=== PATIENT | male | born 1970 | race Caucasian/White ===

== ENCOUNTER 2024-01-10 20:23 | Observation (INO) | payer BC, OTHER ==
[2024-01-10 21:57] LABS: Basophils # (A) 0.1 k/uL (0-0.2); Basophils % (A) 1 %; Eosinophils # (A) 0.2 k/uL (0-0.7); Eosinophils % (A) 2 %; HCT 52.3 % (39.0-53.0); HGB 17.3 gm/dL (13.0-17.5); Lymphocytes # (A) 2.2 k/uL (1.0-4.8); Lymphocytes % (A) 24 %; MCH 28.9 pg (25.0-35.0); MCHC 33.1 g/dL (31.0-37.0); MCV 87.4 fL (80.0-100.0); Mean Platelet Volume 8.4; Monocytes # (A) 0.6 k/uL (0-1.0); Monocytes % (A) 7 %; Neutrophils # (A) 5.9 k/uL (1.3-7.7); Neutrophils % (A) 65 %; Platelet Count 186 k/uL (150-450); RBC 5.99 m/uL (4.30-5.90); RDW 14.3 % (11.5-15.5); WBC 9.2 k/uL (3.8-10.6)
[2024-01-10 22:06] LABS: ALT 62 U/L (4-49); AST 41 U/L (17-59); African American GFR (CKD) >90 (>60 ml/min/1.73 sqM); Albumin 4.2 g/dL (3.5-5.0); Alkaline Phosphatase 50 U/L (38-126); Anion Gap 11 mmol/L; Blood Urea Nitrogen 17 mg/dL (9-20); Calcium 9.3 mg/dL (8.4-10.2); Carbon Dioxide 30 mmol/L (22-30); Chloride 97 mmol/L (98-107); Glucose 113 mg/dL (74-99); Non-African American GFR(CKD) >90 (>60 ml/min/1.73 sqM); Potassium 3.9 mmol/L (3.5-5.1); Sodium 138 mmol/L (137-145); Total Bilirubin 0.8 mg/dL (0.2-1.3); Total Protein 6.8 g/dL (6.3-8.2)
[2024-01-10 22:27] LABS: C Reactive Protein 0.9 mg/dL (<1.0)
--- NOTE | 2024-01-10 23:43 | ED ---
Skin/Abscess/FB HPI - General Chief complaint: Skin/Abscess/Foreign Body Stated complaint: laura. leg pain Time Seen by Provider: 01/10/24 20:46 Source: patient, RN notes reviewed Mode of arrival: ambulatory Limitations: no limitations - History of Present Illness Initial comments: This is a 53-year-old male who presents to the emergency department for redness and swelling to his bilateral lower extremities. States that he has been dealing with this intermittently for the last 3 months. He has been on courses of steroids and antibiotics and states that he seems to get better when being treated, however it comes back immediately after finishing them. He is currently finishing a round of antibiotics that only has a couple of days left. Unsure which one this is. Prior to this, he has not had any bouts of cellulitis. Reports occasional fevers. States that his legs are painful. - Related Data Allergies Allergy/AdvReac Type Severity Reaction Status Date / Time No Known Allergies Allergy Verified 01/10/24 20:30 Review of Systems ROS Statement: Those systems with pertinent positive or pertinent negative responses have been documented in the HPI. ROS Other: All systems not noted in ROS Statement are negative. Past Medical History Past Medical History: No Reported History History of Any Multi-Drug Resistant Organisms: None Reported Additional Past Surgical History / Comment(s): deviated septum Past Psychological History: No Psychological Hx Reported Smoking Status: Current every day smoker Past Alcohol Use History: None Reported Past Drug Use History: Marijuana General Exam Limitations: no limitations General appearance: alert, in no apparent distress Head exam: Present: atraumatic, normocephalic, normal inspection Respiratory exam: Present: normal lung sounds bilaterally. Absent: respiratory distress, wheezes, rales, rhonchi, stridor Cardiovascular Exam: Present: regular rate, normal rhythm, normal heart sounds. Absent: systolic murmur, diastolic murmur, rubs, gallop, clicks Extremities exam: Present: other (Swelling, tenderness, erythema, and warmth to the bilateral lower extremities. 2+ DP and PT pulses.) Neurological exam: Present: alert, oriented X3, CN II-XII intact Psychiatric exam: Present: normal affect, normal mood Course Vital Signs 01/10/24 20:24 Temperature 99.4 F Pulse Rate 97 Respiratory 18 Rate Blood Pressure 146/86 O2 Sat by Pulse 94 L Oximetry Medical Decision Making - Medical Decision Making This is a 53-year-old male who presents to the emergency department for lower extremity redness, swelling, and pain. Was pt. sent in by a medical professional or institution? @ -No Did you speak to anyone other than the patient for history? @ -No Did you review nursing and triage notes? @ -Yes, and I agree, it is accurate with regards to the patient's symptoms. Were old charts reviewed? @ -No Differential Diagnosis? @ -Differential Leg Pain: Leg fracture, leg sprain, DVT, PVD, arterial insufficiency, iliac artery aneurys m, cellulitis, compartment syndrome, tendinopathy, nerve entrapment, piriformis syndrome, osteoarthritis, rhabdomyolysis, myositis, cramping from an electrolyte imbalance, this is not meant to be an all inclusive list. EKG interpreted by me (3pts min.)? @ -Not obtained X-rays interpreted by me (1pt min.)? @ -Not obtained CT interpreted by me (1pt min.)? @ -Not obtained U/S interpreted by me (1pt. min.)? @ -Duplex ultrasound of the bilateral lower extremities obtained. My interpretation identifies no evidence of a DVT. What testing was considered but not performed? (CT, X-rays, U/S, labs)? Why? @ -None What meds were considered but not given? Why? @ -None Did you discuss the management of the patient with other professionals? @ -Yes, Dr. Abreu, who accepts the patient for admission. Did you reconcile home meds? @ -No Was smoking cessation discussed for >3mins.? @ -No Was critical care preformed (if so, how long)? @ -No Were there social determinants of health that impacted care today? How? (Homelessness, low income, unemployed, alcoholism, drug addiction, transportation, low edu. Level, literacy, decrease access to med. care, usp, rehab)? @ -No Was there de-escalation of care discussed even if they declined? (Discuss DNR or withdrawal of care, Hospice)? @ -No What co-morbidities impacted this encounter? (DM, HTN, Smoking, COPD, CAD, Cancer, CVA, Hep., AIDS, mental health diagnosis, sleep apnea, morbid obesity)? @ -None Was patient admitted / discharged? @ -Admitted. Lab work unremarkable. Duplex ultrasound of the bilateral lower extremities reveals no evidence of a DVT. His lower extremities were erythemat ous, warm, swollen, and tender. This is suggestive of a lower extremity cellulitis, especially given that it seems to respond to antibiotics. However, we discussed that other etiologies are also a possibility. Given the progressive nature of his symptoms as well as them being fairly bothersome, thais smith admitted to medicine for possible bilateral lower extremity cellulitis with failure of outpatient management. He was started on vancomycin and cefepime. Consult placed for infectious disease for further evaluation. Case discussed with ED attending Dr. Hollis. Undiagnosed new problem with uncertain prognosis? @ -None Drug Therapy requiring intensive monitoring for toxicity (Heparin, Nitro, Insulin, Cardizem)? @ -None Were any procedures done? @ -None Diagnosis/symptom? @ -Bilateral lower extremity cellulitis Acute, or Chronic, or Acute on Chronic? @ -Chronic Uncomplicated (without systemic symptoms) or Complicated (systemic symptoms)? @ -Uncomplicated Side effects of treatment? @ -None Exacerbation, Progression, or Severe Exacerbation] @ -Progression Poses a threat to life or bodily function? @ -Yes, can lead to severe infection, which can become life-threatening. - Lab Data Result diagrams: 01/10/24 21:45 01/10/24 21:45 Lab Results 01/10/24 01/10/24 01/10/24 Range/Units 21:45 21:45 21:45 WBC 9.2 (3.8-10.6) k/uL RBC 5.99 H (4.30-5.90) m/uL Hgb 17.3 (13.0-17.5) gm/dL Hct 52.3 (39.0-53.0) % MCV 87.4 (80.0-100.0) fL MCH 28.9 (25.0-35.0) pg MCHC 33.1 (31.0-37.0) g/dL RDW 14.3 (11.5-15.5) % Plt Count 186 (150-450) k/uL MPV 8.4 Neutrophils % 65 % Lymphocytes % 24 % Monocytes % 7 % Eosinophils % 2 % Basophils % 1 % Neutrophils # 5.9 (1.3-7.7) k/uL Lymphocytes # 2.2 (1.0-4.8) k/uL Monocytes # 0.6 (0-1.0) k/uL Eosinophils # 0.2 (0-0.7) k/uL Basophils # 0.1 (0-0.2) k/uL ESR 18 (0-20) mm/Hr Sodium 138 (137-145) mmol/L Potassium 3.9 (3.5-5.1) mmol/L Chloride 97 L (98-107) mmol/L Carbon Dioxide 30 (22-30) mmol/L Anion Gap 11 mmol/L BUN 17 (9-20) mg/dL Creatinine 0.91 (0.66-1.25) mg/dL Est GFR (CKD-EPI)AfAm >90 (>60 ml/min/1.73 sqM) Est GFR (CKD-EPI)NonAf >90 (>60 ml/min/1.73 sqM) Glucose 113 H (74-99) mg/dL Plasma Lactic Acid Adilson 1.1 (0.7-2.0) mmol/L Calcium 9.3 (8.4-10.2) mg/dL Total Bilirubin 0.8 (0.2-1.3) mg/dL AST 41 (17-59) U/L ALT 62 H (4-49) U/L Alkaline Phosphatase 50 (38-126) U/L C-Reactive Protein 0.9 (<1.0) mg/dL NT-Pro-B Natriuret Pep pg/mL Total Protein 6.8 (6.3-8.2) g/dL Albumin 4.2 (3.5-5.0) g/dL 01/10/24 Range/Units 21:45 WBC (3.8-10.6) k/uL RBC (4.30-5.90) m/uL Hgb (13.0-17.5) gm/dL Hct (39.0-53.0) % MCV (80.0-100.0) fL MCH (25.0-35.0) pg MCHC (31.0-37.0) g/dL RDW (11.5-15.5) % Plt Count (150-450) k/uL MPV Neutrophils % % Lymphocytes % % Monocytes % % Eosinophils % % Basophils % % Neutrophils # (1.3-7.7) k/uL Lymphocytes # (1.0-4.8) k/uL Monocytes # (0-1.0) k/uL Eosinophils # (0-0.7) k/uL Basophils # (0-0.2) k/uL ESR (0-20) mm/Hr Sodium (137-145) mmol/L Potassium (3.5-5.1) mmol/L Chloride (98-107) mmol/L Carbon Dioxide (22-30) mmol/L Anion Gap mmol/L BUN (9-20) mg/dL Creatinine (0.66-1.25) mg/dL Est GFR (CKD-EPI)AfAm (>60 ml/min/1.73 sqM) Est GFR (CKD-EPI)NonAf (>60 ml/min/1.73 sqM) Glucose (74-99) mg/dL Plasma Lactic Acid Adilson (0.7-2.0) mmol/L Calcium (8.4-10.2) mg/dL Total Bilirubin (0.2-1.3) mg/dL AST (17-59) U/L ALT (4-49) U/L Alkaline Phosphatase (38-126) U/L C-Reactive Protein (<1.0) mg/dL NT-Pro-B Natriuret Pep <20 pg/mL Total Protein (6.3-8.2) g/dL Albumin (3.5-5.0) g/dL - Radiology Data Radiology results: report reviewed, image reviewed Disposition Clinical Impression: Bilateral lower leg cellulitis, Failure of outpatient treatment Disposition: ADMITTED IP TO THIS HOSP
--- NOTE | 2024-01-11 00:06 | US ---
EXAMINATION TYPE: US venous doppler duplex LE DATE OF EXAM: 01/10/2024 10:44 PM COMPARISON: US 2014 CLINICAL INDICATION: Male, 53 years old with history of Leg swelling and redness; Patient states leg swelling and redness. No hx DVT. No blood thinners. SIDE PERFORMED: Bilateral TECHNIQUE: The lower extremity deep venous system is examined utilizing real time linear array sonog woody with graded compression, doppler sonography and color-flow sonography. VESSELS IMAGED: Common Femoral Vein Deep Femoral Vein Greater Saphenous Vein * Femoral Vein Popliteal Vein Small Saphenous Vein * Proximal Calf Veins (* superficial vessels) Slightly limited due to patient body habitus Right Leg: Appears negative for DVT as best seen Left Leg: Appears negative for DVT as best seen Grayscale, color doppler, spectral doppler imaging performed of the deep veins of the bilateral lower extremities. There is normal flow, compressibility, vascular waveforms. IMPRESSION: No ultrasound evidence for acute DVT in either lower extremity.
[2024-01-11] MEDS ORDERED: VANCOMYCIN IV PER PHARMACY 1 EACH MISC MISCELLANE PRN (00:48)
[2024-01-11] MEDS ORDERED: NALOXONE 0.4 MG/ML 1 ML VIAL IV PRN (01:29)
[2024-01-11] MEDS ORDERED: ONDANSETRON 4 MG/2 ML VIAL IVP PRN (01:29)
[2024-01-11] MEDS ORDERED: MORPHINE SULFATE 4 MG/ML SYRINGE IV PRN (01:29)
[2024-01-11] MEDS ORDERED: IBUPROFEN 400 MG TAB PO PRN (01:29)
[2024-01-11] MEDS ORDERED: HYDROcodone/APAP 5-325MG 1 EACH TAB PO PRN (01:29)
[2024-01-11 01:33] LABS: Erythrocyte Sedimentation Rate 18 mm/Hr (0-20)
[2024-01-11] MEDS: CEFEPIME 2 GM in SODIUM CHLORIDE 0.9% 100 ML IVPB SCH (01:42)
[2024-01-11] MEDS: VANCOMYCIN 2,000 MG in SODIUM CHLORIDE 0.9% 500 ML 500 ML IVPB ONE (02:24)
[2024-01-11] MEDS ORDERED: VANCOMYCIN 2,000 MG in SODIUM CHLORIDE 0.9% 500 ML 500 ML IVPB SCH (14:00)
[2024-01-11] MEDS: ceFAZolin 3 GM in SODIUM CHLORIDE 0.9% 100 ML IVPB SCH (14:39)
--- NOTE | 2024-01-11 22:17 | P.CONS ---
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 5 PM and has developed significant swelling to lower extremity with areas of redness over the patient has been diagnosed with a cellulitis at the urgent care with the patient has visit about 3 times before coming to the ER and has been treated with 3 different courses of antibiotic however the patient not sure about the name of those antibiotics patient not complaining of increasing swelling as well as redness to bilateral extremity that apparently has been getting worse over the last few days patient complaining of diffuse swelling to bilateral extremity with associated redness he did have some dull aching pain describing it to be moderate intensity without any radiation currently do not have any open wound or any drainage did have some chills on presentation to the hospital he did have low-grade fever of 99.4 degrees following right patient was not tachycardic hypotensive or hypoxic he did have white count of 9.2 creatinine was 0.91 electrolytes are normal patient was started on cefepime and vancomycin admit to the hospital infectious disease was consulted for further management of antibiotic therapy Review of Systems Positive point and negatives has been mentioned in the HPI, complete review of systems was performed and all other systems are negative Past Medical History Past Medical History: No Reported History History of Any Multi-Drug Resistant Organisms: None Reported Additional Past Surgical History / Comment(s): deviated septum Past Psychological History: No Psychological Hx Reported Smoking Status: Current every day smoker Past Alcohol Use History: None Reported Past Drug Use History: Marijuana Medications and Allergies Home Medications Medication Instructions Recorded Confirmed Type Doxycycline Hyclate 100 mg PO BID 01/11/24 01/11/24 History Allergies Allergy/AdvReac Type Severity Reaction Status Date / Time No Known Allergies Allergy Verified 01/11/24 07:43 Physical Exam Vitals: Vital Signs Temp Pulse Resp BP Pulse Ox 01/11/24 08:00 98.4 F 88 18 126/83 98 01/11/24 04:20 98.3 F 76 20 125/87 96 01/11/24 03:05 94 L 01/11/24 00:30 99.0 F 72 18 130/89 96 01/10/24 20:24 99.4 F 97 18 146/86 94 L Intake and Output 01/10/24 01/11/24 01/11/24 22:59 06:59 14:59 Other: Weight 127.006 kg GENERAL DESCRIPTION: Middle-aged male lying in bed, no distress. No tachypnea or accessory muscle of respiration use. HEENT: Shows Pallor , no scleral icterus. Oral mucous membrane is dry. No pharyngeal erythema or thrush NECK: Trachea central, no thyromegaly. LUNGS: Unlabored breathing. Clear to auscultation anteriorly. No wheeze or crackle. HEART: S1, S2, regular rate and rhythm. No loud murmur ABDOMEN: Soft, no tenderness , guarding or rigidity, no organomegaly EXTREMITIES: Diffuse under bilateral lower extremity with some redness which is warm to touch SKIN: No rash, no masses palpable. NEUROLOGICAL: The patient is awake, alert, oriented x3, mood and affect normal. Results CBC & Chem 7: 01/10/24 21:45 01/10/24 21:45 Labs: Abnormal Lab Results - Last 24 Hours (Table) 01/10/24 01/10/24 Range/Units 21:45 21:45 RBC 5.99 H (4.30-5.90) m/uL Chloride 97 L (98-107) mmol/L Glucose 113 H (74-99) mg/dL ALT 62 H (4-49) U/L Assessment and Plan (1) Bilateral lower leg cellulitis Current Visit: Yes Status: Acute Code(s): L03.116 - CELLULITIS OF LEFT LOWER LIMB; L03.115 - CELLULITIS OF RIGHT LOWER LIMB SNOMED Code(s): 096976526 (2) Failure of outpatient treatment Current Visit: Yes Status: Acute Code(s): Z78.9 - OTHER SPECIFIED HEALTH STATUS SNOMED Code(s): 039821148 Plan: 1patient with diffuse swelling to bilateral lower extremity with associated redness in this patient's likely with venous stasis but no evidence of any DVT continue to risk of recurrent cellulitis failing outpatient oral antibiotic therapy likely streptococcal disease 2discontinue vancomycin and cefepime. 3we will apply Jordan wrap from just above the toe to below the knee change daily. 4we will start the patient cefazolin 3 g every 8 hours We will follow on clinical condition and cultures to further adjust medication if needed Thank you for this consultation we will follow the patient along with you Dictation was produced using [employer] dictation software. please excuse any grammatical, word or spelling errors. Time with Patient: Greater than 30
[2024-01-12 12:55] LABS: African American GFR (CKD) >90 (>60 ml/min/1.73 sqM); Anion Gap 7 mmol/L; Blood Urea Nitrogen 13 mg/dL (9-20); Calcium 9.1 mg/dL (8.4-10.2); Carbon Dioxide 31 mmol/L (22-30); Chloride 101 mmol/L (98-107); Glucose 67 mg/dL (74-99); Non-African American GFR(CKD) >90 (>60 ml/min/1.73 sqM); Potassium 3.9 mmol/L (3.5-5.1); Sodium 139 mmol/L (137-145)
[2024-01-12 13:11] LABS: Basophils % (A) 0 %; Eosinophils # (A) 0.1 k/uL (0-0.7); Eosinophils % (A) 1 %; HGB 18.5 gm/dL (13.0-17.5); Lymphocytes % (A) 24 %; MCH 29.2 pg (25.0-35.0); MCHC 32.8 g/dL (31.0-37.0); Mean Platelet Volume 9.1; Monocytes # (A) 0.7 k/uL (0-1.0); Monocytes % (A) 9 %; Neutrophils # (A) 5.3 k/uL (1.3-7.7); Neutrophils % (A) 64 %; Platelet Count 201 k/uL (150-450); RBC 6.36 m/uL (4.30-5.90); RDW 14.8 % (11.5-15.5); WBC 8.4 k/uL (3.8-10.6)
[2024-01-12 13:13] LABS: HCT 56.6 % (39.0-53.0)
[2024-01-12 16:39] LABS: Glucose,Whole Blood 84 mg/dL (70-110)
--- NOTE | 2024-01-12 16:54 | P.HPIM ---
History of Present Illness H&P Date: 01/11/24 Chief Complaint: Pain and swelling both lower extremities 53-year-old male who presents to the emergency department for redness and swelling to his bilateral lower extremities. States that he has been dealing with this intermittently for the last 3 months. He has been on courses of steroids and antibiotics and states that he seems to get better when being treated, however it comes back immediately after finishing them. He is currently finishing a round of antibiotics that only has a couple of days left. Unsure which one this is. Prior to this, he has not had any bouts of cellulitis. Reports occasional fevers. States that his legs are painful. 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 5 PM and has developed significant swelling to lower extremity with areas of redness over the patient has been diagnosed with a cellulitis at the urgent care with t he patient has visit about 3 times before coming to the ER and has been treated with 3 different courses of antibiotic however the patient not sure about the name of those antibiotics patient not complaining of increasing swelling as well as redness to bilateral extremity that apparently has been getting worse over the last few days patient complaining of diffuse swelling to bilateral extremity with associated redness he did have some dull aching pain describing it to be moderate intensity without any radiation currently do not have any open wound or any drainage Blood work completed in ED reveals a WBC of 9.2, hemoglobin of 17.3 and platelet count of 186, sodium 138, potassium 3.9, BUNs/creatinine of 17/0.91 and blood glucose of 113 Review of Systems REVIEW OF SYSTEMS: CONSTITUTIONAL: No fever, no malaise, no fatigue. HEENT: No recent visual problems or hearing problems. Denied any sore throat. CARDIOVASCULAR: No chest pain, orthopnea, PND, no palpitations, no syncope. PULMONARY: No shortness of breath, no cough, no hemoptysis. GASTROINTESTINAL: No diarrhea, no nausea, no vomiting, no abdominal pain. NEUROLOGICAL: No headaches, no weakness, no numbness. HEMATOLOGICAL: Denies any bleeding or petechiae. GENITOURINARY: Denies any burning micturition, frequency, or urgency. MUSCULOSKELETAL/RHEUMATOLOGICAL: Denies any joint pain, swelling, or any muscle pain. ENDOCRINE: Denies any polyuria or polydipsia. The rest of the 14-point review of systems is negative. Past Medical History Past Medical History: No Reported History History of Any Multi-Drug Resistant Organisms: None Reported Additional Past Surgical History / Comment(s): deviated septum Past Psychological History: No Psychological Hx Reported Smoking Status: Current every day smoker Past Alcohol Use History: None Reported Past Drug Use History: Marijuana Medications and Allergies Home Medications Medication Instructions Recorded Confirmed Type Doxycycline Hyclate 100 mg PO BID 01/11/24 01/11/24 History Allergies Allergy/AdvReac Type Severity Reaction Status Date / Time No Known Allergies Allergy Verified 01/11/24 07:43 Physical Exam Vitals: Vital Signs Temp Pulse Resp BP Pulse Ox 01/11/24 08:00 98.4 F 88 18 126/83 98 01/11/24 04:20 98.3 F 76 20 125/87 96 01/11/24 03:05 94 L 01/11/24 00:30 99.0 F 72 18 130/89 96 01/10/24 20:24 99.4 F 97 18 146/86 94 L Intake and Output 01/10/24 01/11/24 01/11/24 22:59 06:59 14:59 Other: Weight 127.006 kg Limitations: no limitations General appearance: alert, in no apparent distress Head exam: Present: atraumatic, normocephalic, normal inspection Respiratory exam: Present: normal lung sounds bilaterally. Absent: respiratory distress, wheezes, rales, rhonchi, stridor Cardiovascular Exam: Present: regular rate, normal rhythm, normal heart sounds. Absent: systolic murmur, diastolic murmur, rubs, gallop, clicks Extremities exam: Present: other (Swelling, tenderness, erythema, and warmth to the bilateral lower extremities. 2+ DP and PT pulses.) Neurological exam: Present: alert, oriented X3, CN II-XII intact Psychiatric exam: Present: normal affect, normal mood Results CBC & Chem 7: 01/12/24 12:06 01/12/24 12:06 Labs: Abnormal Lab Results - Last 24 Hours (Table) 01/10/24 01/10/24 Range/Units 21:45 21:45 RBC 5.99 H (4.30-5.90) m/uL Chloride 97 L (98-107) mmol/L Glucose 113 H (74-99) mg/dL ALT 62 H (4-49) U/L Assessment and Plan Assessment: 1. Cellulitis bilateral lower extremities; failed outpatient treatment -Patient has been evaluated by ID and is recommended to be placed on cefazolin 3 g IV every 8 hours; Jordan wrap to both lower extremities between toes and knees -Blood cultures obtained in ED; monitor CBC, CRP and procalcitonin 2. Mild transaminitis; no history of alcohol use; will monitor closely 3. Obesity; counseling done on need for weight reduction 4. Uncontrolled pain; morphine sulfate 4 mg IV every 4 hours as needed along wi th [place] 5 mg every 4 hours as needed VTE prophylaxis; early ambulation CODE STATUS; full code
--- NOTE | 2024-01-12 19:19 | P.PN ---
Subjective Progress Note Date: 01/12/24 Principal diagnosis: Reason for follow-up is bilateral lower extremity cellulitis Patient is a 53-year-old male with no significant past medical history apparently patient has been dealing with bilateral lower extremity swelling and redness for the last 3 months, presented to hospital with worsening swelling redness and pain to bilateral extremity has been diagnosed with cellulitis Dopplers were negative for DVT. On today's evaluation that is 01/12/2024,the patient denies any fever or any chills, patient is breathing comfortably on room air, the patient denies chest pain shortness of breath and no significant cough, patient denies abdominal pain, no nausea vomiting or diarrhea. Patient bilateral lower extremity swelling and redness slightly decreased patient was not able to tolerate Jordan wrap as reported by the nursing staff. Patient white count is 8.4, creatinine 0.88 blood cultures are pending Objective - Vital Signs Vital signs: Vital Signs Temp 98.4 F 01/12/24 02:14 Pulse 90 01/12/24 02:14 Resp 18 01/12/24 02:14 BP 139/89 01/12/24 02:14 Pulse Ox 95 01/12/24 02:14 FiO2 Intake & Output 01/11/24 01/12/24 01/12/24 18:59 06:59 18:59 Weight 127.006 kg Other: Voiding Method Toilet # Voids 2 - Exam GENERAL DESCRIPTION: Middle-age male lying in bed in no distress RESPIRATORY SYSTEM: Unlabored breathing , decreased breath sounds at bases HEART: S1 S2 regular rate and rhythm , ABDOMEN: Soft , no tenderness EXTREMITIES: Bilateral lower extremity swelling redness slightly decreased - Labs CBC & Chem 7: 01/12/24 12:06 01/12/24 12:06 Assessment and Plan (1) Bilateral lower leg cellulitis Current Visit: Yes Status: Acute Code(s): L03.116 - CELLULITIS OF LEFT LOWER LIMB; L03.115 - CELLULITIS OF RIGHT LOWER LIMB SNOMED Code(s): 608621749 (2) Failure of outpatient treatment Current Visit: Yes Status: Acute Code(s): Z78.9 - OTHER SPECIFIED HEALTH STATUS SNOMED Code(s): 668551177 Plan: 1patient with diffuse swelling to bilateral lower extremity with associated redness in this patient's likely with venous stasis but no evidence of any DVT continue to risk of recurrent cellulitis failing outpatient oral antibiotic therapy likely streptococcal disease 2patient was unable to tolerate Jordan wrap nursing staff advised to apply compression stockings and continue with the cefazolin will reevaluate tomorrow Dictation was produced using [employer] dictation software. please excuse any grammatical, word or spelling errors. Time with Patient: Less than 30
[2024-01-12 20:26] LABS: Glucose,Whole Blood 110 mg/dL (70-110)
[2024-01-13 05:55] LABS: Glucose,Whole Blood 126 mg/dL (70-110)
[2024-01-13] MEDS: ACETAMINOPHEN TAB 325 MG TAB PO PRN (07:39)
[2024-01-13 10:42] LABS: Basophils # (A) 0.05 X 10*3/uL (0.00-0.10); Basophils % (A) 0.5 %; Eosinophils % (A) 2.1 %; HCT 53.4 % (39.6-50.0); HGB 17.4 g/dL (13.0-17.0); Lymphocytes # (A) 2.33 X 10*3/uL (0.90-5.00); Lymphocytes % (A) 24.3 %; MCH 28.1 pg (27.0-32.0); MCHC 32.6 g/dL (32.0-37.0); MCV 86.1 FL (80.0-97.0); Mean Platelet Volume 10.3 FL (9.5-12.2); Monocytes # (A) 0.93 X 10*3/uL (0.20-1.00); Monocytes % (A) 9.7 %; NRBC Per 100 WBC 0 X 10*3/uL (0.00-0.01); Neutrophils # (A) 5.84 X 10*3/uL (1.80-7.70); Neutrophils % (A) 60.8 %; Platelet Count 189 X 10*3/uL (140-440); RDW 14.4 % (11.5-14.5)
[2024-01-13 11:17] LABS: BUN/Creat Ratio 14.89 Ratio (12.00-20.00); Blood Urea Nitrogen 13.4 mg/dL (9.0-27.0); Calcium 8.6 mg/dL (8.7-10.3); Carbon Dioxide 24.4 mmol/L (21.6-31.8); Chloride 105 mmol/L (96-109); Glucose 111 mg/dL (70-110); Potassium 4.2 mmol/L (3.5-5.5); Sodium 138 mmol/L (135-145)
[2024-01-13 11:47] LABS: Glucose,Whole Blood 92 mg/dL (70-110)
[2024-01-13 17:10] LABS: Glucose,Whole Blood 107 mg/dL (70-110)
--- NOTE | 2024-01-13 17:44 | P.PN ---
Subjective Progress Note Date: 01/13/24 53-year-old male who presents to the emergency department for redness and swelling to his bilateral lower extremities. States that he has been dealing with this intermittently for the last 3 months. He has been on courses of steroids and antibiotics and states that he seems to get better when being najma nazario, however it comes back immediately after finishing them. He is currently finishing a round of antibiotics that only has a couple of days left. Unsure which one this is. Prior to this, he has not had any bouts of cellulitis. Reports occasional fevers. States that his legs are painful. 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 5 PM and has developed significant swelling to lower extremity with areas of redness over the patient has been diagnosed with a cellulitis at the urgent care with the patient has visit about 3 times before coming to the ER and has been treated with 3 different courses of antibiotic however the patient not sure about the name of those antibiotics patient not complaining of increasing swelling as well as redness to bilateral extremity that apparently has been getting worse over the last few days patient complaining of diffuse swelling to bilateral extremity with associated redness he did have some dull aching pain describing it to be moderate intensity without any radiation currently do not have any open wound or any drainage Blood work completed in ED reveals a WBC of 9.2, hemoglobin of 17.3 and platelet count of 186, sodium 138, potassium 3.9, BUNs/creatinine of 17/0.91 and blood glucose of 113 Objective - Vital Signs Vital signs: Vital Signs Temp 97.9 F 01/12/24 07:40 Pulse 95 01/12/24 07:40 Resp 20 01/12/24 07:40 BP 129/87 01/12/24 07:40 Pulse Ox 93 L 01/12/24 07:40 FiO2 Intake & Output 01/11/24 01/12/24 01/12/24 18:59 06:59 18:59 Weight 127.006 kg Other: Voiding Method Toilet # Voids 2 - Exam General appearance: alert, in no apparent distress Head exam: Present: atraumatic, normocephalic, normal inspection Respiratory exam: Present: normal lung sounds bilaterally. Absent: respiratory distress, wheezes, rales, rhonchi, stridor Cardiovascular Exam: Present: regular rate, normal rhythm, normal heart sounds. Absent: systolic murmur, diastolic murmur, rubs, gallop, clicks Extremities exam: Present: other (Swelling, tenderness, erythema, and warmth to the bilateral lower extremities. 2+ DP and PT pulses.) Neurological exam: Present: alert, oriented X3, CN II-XII intact Psychiatric exam: Present: normal affect, normal mood - Labs CBC & Chem 7: 01/13/24 06:28 01/13/24 06:28 Assessment and Plan Assessment: 1. Cellulitis bilateral lower extremities; failed outpatient treatment -Patient has been evaluated by ID and is recommended to be placed on cefazolin 3 g IV every 8 hours; Jordan wrap to both lower extremities between toes and knees -Blood cultures obtained in ED; monitor CBC, CRP and procalcitonin 2. Mild transaminitis; no history of alcohol use; will monitor closely 3. Obesity; counseling done on need for weight reduction 4. Uncontrolled pain; morphine sulfate 4 mg IV every 4 hours as needed along with [place] 5 mg every 4 hours as needed VTE prophylaxis; early ambulation CODE STATUS; full code
--- NOTE | 2024-01-13 17:46 | P.PN ---
Subjective Progress Note Date: 01/13/24 53-year-old male who presents to the emergency department for redness and swelling to his bilateral lower extremities. States that he has been dealing with this intermittently for the last 3 months. He has been on courses of steroids and antibiotics and states that he seems to get better when being najma nazario, however it comes back immediately after finishing them. He is currently finishing a round of antibiotics that only has a couple of days left. Unsure which one this is. Prior to this, he has not had any bouts of cellulitis. Reports occasional fevers. States that his legs are painful. 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 5 PM and has developed significant swelling to lower extremity with areas of redness over the patient has been diagnosed with a cellulitis at the urgent care with the patient has visit about 3 times before coming to the ER and has been treated with 3 different courses of antibiotic however the patient not sure about the name of those antibiotics patient not complaining of increasing swelling as well as redness to bilateral extremity that apparently has been getting worse over the last few days patient complaining of diffuse swelling to bilateral extremity with associated redness he did have some dull aching pain describing it to be moderate intensity without any radiation currently do not have any open wound or any drainage Blood work completed in ED reveals a WBC of 9.2, hemoglobin of 17.3 and platelet count of 186, sodium 138, potassium 3.9, BUNs/creatinine of 17/0.91 and blood glucose of 113 01/13/2024 Patient is seen and evaluated in room at bedside; reports some improvement in pain and redness in lower extremities; remains swollen Vital signs are reviewed and remained stable Lab review shows WBC 9.6, hemoglobin 17.4 and platelet count of 189, sodium 138, potassium 4.2, BUNs/creatinine of 13.4/0.9 -ID on board and recommending to continue with IV cefazolin given suspicion for streptococcal disease; Jordan wrap to both lower extremities was recommended; patient is unable to tolerate Objective - Vital Signs Vital signs: Vital Signs Temp 98.2 F 01/13/24 07:28 Pulse 80 01/13/24 07:28 Resp 18 01/13/24 07:28 BP 116/77 01/13/24 07:28 Pulse Ox 95 01/13/24 07:28 FiO2 Intake & Output 01/12/24 01/13/24 01/13/24 18:59 06:59 18:59 Intake Total 120 Balance 120 Intake: Oral 120 Other: Voiding Method Toilet # Voids 3 3 - Exam General appearance: alert, in no apparent distress Head exam: Present: atraumatic, normocephalic, normal inspection Respiratory exam: Present: normal lung sounds bilaterally. Absent: respiratory distress, wheezes, rales, rhonchi, stridor Cardiovascular Exam: Present: regular rate, normal rhythm, normal heart sounds. Absent: systolic murmur, diastolic murmur, rubs, gallop, clicks Extremities exam: Present: other (Swelling, tenderness, erythema, and warmth to the bilateral lower extremities. 2+ DP and PT pulses.) Neurological exam: Present: alert, oriented X3, CN II-XII intact Psychiatric exam: Present: normal affect, normal mood - Labs CBC & Chem 7: 01/13/24 06:28 01/13/24 06:28 Labs: Abnormal Lab Results - Last 24 Hours (Table) 01/12/24 01/12/24 01/13/24 Range/Units 12:06 12:06 05:51 RBC 6.36 H (4.30-5.90) m/uL Hgb 18.5 H (13.0-17.5) gm/dL Hct 56.6 H (39.0-53.0) % Immature Gran # (0.00-0.04) X 10*3/uL Carbon Dioxide 31 H (22-30) mmol/L Glucose 67 L (74-99) mg/dL POC Glucose (mg/dL) 126 H (70-110) mg/dL Calcium (8.7-10.3) mg/dL 01/13/24 01/13/24 Range/Units 06:28 06:28 RBC 6.20 H (4.30-5.90) m/uL Hgb 17.4 H (13.0-17.5) gm/dL Hct 53.4 H (39.0-53.0) % Immature Gran # 0.25 H (0.00-0.04) X 10*3/uL Carbon Dioxide (22-30) mmol/L Glucose 111 H (74-99) mg/dL POC Glucose (mg/dL) (70-110) mg/dL Calcium 8.6 L (8.7-10.3) mg/dL Microbiology - Last 24 Hours (Table) 01/11/24 01:30 Blood Culture - Preliminary Blood Assessment and Plan Assessment: 1. Cellulitis bilateral lower extremities; failed outpatient treatment -Patient has been evaluated by ID and is recommended to be placed on cefazolin 3 g IV every 8 hours; Jordan wrap to both lower extremities between toes and knees -Blood cultures obtained in ED; monitor CBC, CRP and procalcitonin 2. Mild transaminitis; no history of alcohol use; will monitor closely 3. Obesity; counseling done on need for weight reduction 4. Uncontrolled pain; morphine sulfate 4 mg IV every 4 hours as needed along with [place] 5 mg every 4 hours as needed VTE prophylaxis; early ambulation CODE STATUS; full code
[2024-01-13 21:25] LABS: Glucose,Whole Blood 117 mg/dL (70-110)
[2024-01-14 05:43] LABS: Glucose,Whole Blood 101 mg/dL (70-110)
[2024-01-14 11:18] LABS: Glucose,Whole Blood 137 mg/dL (70-110)
[2024-01-14 11:45] LABS: Basophils # (A) 0.06 X 10*3/uL (0.00-0.10); Basophils % (A) 0.7 %; Eosinophils # (A) 0.18 X 10*3/uL (0.04-0.35); Eosinophils % (A) 2.1 %; HCT 54.3 % (39.6-50.0); HGB 17.1 g/dL (13.0-17.0); Lymphocytes # (A) 2.06 X 10*3/uL (0.90-5.00); Lymphocytes % (A) 23.5 %; MCH 27.9 pg (27.0-32.0); MCHC 31.5 g/dL (32.0-37.0); MCV 88.6 FL (80.0-97.0); Mean Platelet Volume 11.3 FL (9.5-12.2); Monocytes # (A) 0.91 X 10*3/uL (0.20-1.00); Monocytes % (A) 10.4 %; NRBC Per 100 WBC 0 X 10*3/uL (0.00-0.01); Neutrophils # (A) 5.35 X 10*3/uL (1.80-7.70); Neutrophils % (A) 60.9 %; Platelet Count 179 X 10*3/uL (140-440); RBC 6.13 X 10*6/uL (4.40-5.60); RDW 14.4 % (11.5-14.5); WBC 8.77 X 10*3/uL (4.50-10.00)
[2024-01-14 12:07] LABS: Blood Urea Nitrogen 12.6 mg/dL (9.0-27.0); Calcium 8.5 mg/dL (8.7-10.3); Carbon Dioxide 24.2 mmol/L (21.6-31.8); Chloride 103 mmol/L (96-109); Glucose 111 mg/dL (70-110); Potassium 4.1 mmol/L (3.5-5.5); Sodium 138 mmol/L (135-145)
--- NOTE | 2024-01-14 12:46 | P.PN ---
Subjective 53-year-old male who presents to the emergency department for redness and swelling to his bilateral lower extremities. States that he has been dealing with this intermittently for the last 3 months. He has been on courses of steroids and antibiotics and states that he seems to get better when being treated, however it comes back immediately after finishing them. He is currently finishing a round of antibiotics that only has a couple of days left. Unsure which one this is. Prior to this, he has not had any bouts of cellulitis. Reports occasional fevers. States that his legs are painful. 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 5 PM and has developed significant swelling to lower extremity with areas of redness over the patient has been diagnosed with a cellulitis at the urgent care with the patient has visit about 3 times before coming to the ER and has been treated with 3 different courses of antibiotic however the patient not sure about the name of those antibiotics patient not complaining of increasing swelling as well as redness to bilateral extremity that apparently has been getting worse over the last few days patient complaining of diffuse swelling to bilateral extremity with associated redness he did have some dull aching pain describing it to be moderate intensity without any radiation currently do not have any open wound or any drainage Blood work completed in ED reveals a WBC of 9.2, hemoglobin of 17.3 and platelet count of 186, sodium 138, potassium 3.9, BUNs/creatinine of 17/0.91 and blood gl ucose of 113 01/13/2024 Patient is seen and evaluated in room at bedside; reports some improvement in pain and redness in lower extremities; remains swollen Vital signs are reviewed and remained stable Lab review shows WBC 9.6, hemoglobin 17.4 and platelet count of 189, sodium 138, potassium 4.2, BUNs/creatinine of 13.4/0.9 -ID on board and recommending to continue with IV cefazolin given suspicion for streptococcal disease; Jordan wrap to both lower extremities was recommended; patient is unable to tolerate 01/13 Patient legs remain swollen red and tender on both sides, compression stocking in place No chest pain dyspnea, no other new complaint Hemodynamically stable, CBC and BMP stable, hemoglobin 17.4 and 17.1 Patient remains on cefazolin Ultrasound of the leg is negative for DVT Patient still in me he has no PCP and he has no insurance but he is willing to follow-up outpatient when he is done. Objective - Vital Signs Vital signs: Vital Signs Temp 98.0 F 01/14/24 07:00 Pulse 100 01/14/24 07:00 Resp 17 01/14/24 07:00 BP 133/76 01/14/24 07:00 Pulse Ox 98 01/14/24 07:00 FiO2 Intake & Output 01/13/24 01/14/24 01/14/24 18:59 06:59 18:59 Intake Total 620 120 Balance 620 120 Intake: Oral 620 120 Other: # Voids 6 2 # Bowel Movements 2 - Exam GENERAL: The patient is alert and oriented x3, not in any acute distress. Well developed, well nourished. HEENT: Pupils are round and equally reacting to light. EOMI. No scleral icterus. No conjunctival pallor. Normocephalic, atraumatic. No pharyngeal erythema. No thyromegaly. CARDIOVASCULAR: S1 and S2 present. No murmurs, rubs, or gallops. PULMONARY: Chest is clear to auscultation, no wheezing , no crackles. ABDOMEN: Soft, nontender, nondistended, normoactive bowel sounds. No palpable organomegaly. MUSCULOSKELETAL: No joint swelling or deformity. -EXTREMITIES: No cyanosis, clubbing, or pedal edema. Bilateral lower extremity redness tenderness and erythema NEUROLOGICAL: Gross neurological examination did not reveal any focal deficits. SKIN: No rashes. no petechiae. - Labs CBC & Chem 7: 01/14/24 05:02 01/14/24 05:02 Labs: Abnormal Lab Results - Last 24 Hours (Table) 01/13/24 01/14/24 01/14/24 Range/Units 21:23 05:02 05:02 RBC 6.13 H (4.40-5.60) X 10*6/uL Hgb 17.1 H (13.0-17.0) g/dL Hct 54.3 H (39.6-50.0) % MCHC 31.5 L (32.0-37.0) g/dL Immature Gran # 0.21 H (0.00-0.04) X 10*3/uL Glucose 111 H (70-110) mg/dL POC Glucose (mg/dL) 117 H (70-110) mg/dL Calcium 8.5 L (8.7-10.3) mg/dL 01/14/24 Range/Units 11:17 RBC (4.40-5.60) X 10*6/uL Hgb (13.0-17.0) g/dL Hct (39.6-50.0) % MCHC (32.0-37.0) g/dL Immature Gran # (0.00-0.04) X 10*3/uL Glucose (70-110) mg/dL POC Glucose (mg/dL) 137 H (70-110) mg/dL Calcium (8.7-10.3) mg/dL Microbiology - Last 24 Hours (Table) 01/11/24 01:30 Blood Culture - Preliminary Blood Assessment and Plan Assessment: 1. Cellulitis bilateral lower extremities; failed outpatient treatment -Patient has been evaluated by ID and is recommended to be placed on cefazolin 3 g IV every 8 hours; Jordan wrap to both lower extremities between toes and knees -Blood cultures obtained in ED; monitor CBC, CRP and procalcitonin 2. Mild transaminitis; no history of alcohol use; will monitor closely 3. Obesity; counseling done on need for weight reduction 4. Uncontrolled pain; morphine sulfate 4 mg IV every 4 hours as needed along with [place] 5 mg every 4 hours as needed VTE prophylaxis; early ambulation CODE STATUS; full code
--- NOTE | 2024-01-14 21:40 | P.PN ---
Subjective Progress Note Date: 01/13/24 Principal diagnosis: Reason for follow-up is bilateral lower extremity cellulitis Patient is a 53-year-old male with no significant past medical history apparently patient has been dealing with bilateral lower extremity swelling and redness for the last 3 months, presented to hospital with worsening swelling redness and pain to bilateral extremity has been diagnosed with cellulitis Dopplers were negative for DVT. On today's evaluation that is 01/13/2024,the patient remains to be afebrile, patient is on room air not requiring supplemental oxygen and denies any ned rtness of breath no chest pain or cough.Patient denies having any nausea or vomiting, no abdominal pain and no diarrhea and denies any worsening pain to the lower extremity. Patient white count is 9.60, creatinine 0.9 blood cultures are pending Objective - Vital Signs Vital signs: Vital Signs Temp 97.7 F 01/13/24 14:56 Pulse 84 01/13/24 14:56 Resp 18 01/13/24 14:56 BP 127/86 01/13/24 14:56 Pulse Ox 95 01/13/24 14:56 FiO2 Intake & Output 01/12/24 01/13/24 01/13/24 18:59 06:59 18:59 Intake Total 120 Balance 120 Intake: Oral 120 Other: Voiding Method Toilet # Voids 3 3 - Exam GENERAL DESCRIPTION: Middle-age male lying in bed in no distress RESPIRATORY SYSTEM: Unlabored breathing , decreased breath sounds at bases HEART: S1 S2 regular rate and rhythm , ABDOMEN: Soft , no tenderness EXTREMITIES: Bilateral lower extremity swelling redness slightly decreased - Labs CBC & Chem 7: 01/13/24 06:28 01/13/24 06:28 Labs: Abnormal Lab Results - Last 24 Hours (Table) 01/13/24 01/13/24 01/13/24 Range/Units 05:51 06:28 06:28 RBC 6.20 H (4.40-5.60) X 10*6/uL Hgb 17.4 H (13.0-17.0) g/dL Hct 53.4 H (39.6-50.0) % Immature Gran # 0.25 H (0.00-0.04) X 10*3/uL Glucose 111 H (70-110) mg/dL POC Glucose (mg/dL) 126 H (70-110) mg/dL Calcium 8.6 L (8.7-10.3) mg/dL Microbiology - Last 24 Hours (Table) 01/11/24 01:30 Blood Culture - Preliminary Blood Assessment and Plan (1) Bilateral lower leg cellulitis Current Visit: Yes Status: Acute Code(s): L03.116 - CELLULITIS OF LEFT LOWER LIMB; L03.115 - CELLULITIS OF RIGHT LOWER LIMB SNOMED Code(s): 171752947 (2) Failure of outpatient treatment Current Visit: Yes Status: Acute Code(s): Z78.9 - OTHER SPECIFIED HEALTH STATUS SNOMED Code(s): 596456447 Plan: 1patient with diffuse swelling to bilateral lower extremity with associated redness in this patient's likely with venous stasis but no evidence of any DVT continue to risk of recurrent cellulitis failing outpatient oral antibiotic therapy likely streptococcal disease 2patient did have some clinical improvement to continue with cefazolin for another l 24-hour before transition to oral antibiotics continue with the compression Dictation was produced using [employer] dictation software. please excuse any grammatical, word or spelling errors.
--- NOTE | 2024-01-14 21:41 | P.PN ---
Subjective Progress Note Date: 01/14/24 Principal diagnosis: Reason for follow-up is bilateral lower extremity cellulitis Patient is a 53-year-old male with no significant past medical history apparently patient has been dealing with bilateral lower extremity swelling and redness for the last 3 months, presented to hospital with worsening swelling redness and pain to bilateral extremity has been diagnosed with cellulitis Dopplers were negative for DVT. On today's evaluation that is 01/14/2024, the patient continues to be afebrile, the patient is on room air and breathing comfortably, the Pt denies having any chest pain or cough, the patient denies having any abdominal pain no vomiting or any diarrhea overall swelling and redness to lower extremity has decreased in intensity. Patient white count is 8.77, creatinine 0.9 Objective - Vital Signs Vital signs: Vital Signs Temp 98.3 F 01/14/24 14:00 Pulse 90 01/14/24 14:00 Resp 17 01/14/24 14:00 BP 128/81 01/14/24 14:00 Pulse Ox 96 01/14/24 14:00 FiO2 Intake & Output 01/13/24 01/14/24 01/14/24 18:59 06:59 18:59 Intake Total 620 120 Balance 620 120 Intake: Oral 620 120 Other: # Voids 6 2 # Bowel Movements 2 - Exam GENERAL DESCRIPTION: Middle-age male lying in bed in no distress RESPIRATORY SYSTEM: Unlabored breathing , decreased breath sounds at bases HEART: S1 S2 regular rate and rhythm , ABDOMEN: Soft , no tenderness EXTREMITIES: Bilateral lower extremity swelling redness slightly decreased - Labs CBC & Chem 7: 01/14/24 05:02 01/14/24 05:02 Labs: Abnormal Lab Results - Last 24 Hours (Table) 01/13/24 01/14/24 01/14/24 Range/Units 21:23 05:02 05:02 RBC 6.13 H (4.40-5.60) X 10*6/uL Hgb 17.1 H (13.0-17.0) g/dL Hct 54.3 H (39.6-50.0) % MCHC 31.5 L (32.0-37.0) g/dL Immature Gran # 0.21 H (0.00-0.04) X 10*3/uL Glucose 111 H (70-110) mg/dL POC Glucose (mg/dL) 117 H (70-110) mg/dL Calcium 8.5 L (8.7-10.3) mg/dL 01/14/24 Range/Units 11:17 RBC (4.40-5.60) X 10*6/uL Hgb (13.0-17.0) g/dL Hct (39.6-50.0) % MCHC (32.0-37.0) g/dL Immature Gran # (0.00-0.04) X 10*3/uL Glucose (70-110) mg/dL POC Glucose (mg/dL) 137 H (70-110) mg/dL Calcium (8.7-10.3) mg/dL Microbiology - Last 24 Hours (Table) 01/11/24 01:30 Blood Culture - Preliminary Blood Assessment and Plan (1) Bilateral lower leg cellulitis Current Visit: Yes Status: Acute Code(s): L03.116 - CELLULITIS OF LEFT LOWER LIMB; L03.115 - CELLULITIS OF RIGHT LOWER LIMB SNOMED Code(s): 472563877 (2) Failure of outpatient treatment Current Visit: Yes Status: Acute Code(s): Z78.9 - OTHER SPECIFIED HEALTH STATUS SNOMED Code(s): 495020724 Plan: 1patient with diffuse swelling to bilateral lower extremity with associated redness in this patient's likely with venous stasis but no evidence of any DVT continue to risk of recurrent cellulitis failing outpatient oral antibiotic therapy likely streptococcal disease 2patient slowly clinically improving continue with cefazolin and compressive dressing finishing therapy with oral Keflex, question concern were answered Dictation was produced using [employer] dictation software. please excuse any grammatical, word or spelling errors.
[2024-01-15 08:39] VITALS: RESP 18
[2024-01-15 14:48] VITALS: BP 119/79; PULSE 90; TEMP 97.7
--- NOTE | 2024-01-15 16:07 | P.PN ---
Subjective Progress Note Date: 01/15/24 Principal diagnosis: Reason for follow-up is bilateral lower extremity cellulitis Patient is a 53-year-old male with no significant past medical history apparently patient has been dealing with bilateral lower extremity swelling and redness for the last 3 months, presented to hospital with worsening swelling redness and pain to bilateral extremity has been diagnosed with cellulitis Dopplers were negative for DVT. On today's evaluation that is 01/15/2024, Patient is afebrile patient is currently on room air and denies having any shortness of breath, the patient de nies any chest pain or cough, the patient denies any nausea vomiting did not have any abdominal pain and no diarrhea, overall swelling redness for extremity has decreased in intensity. Patient white count is 8.77, creatinine 0.9 blood culture has been negative Objective - Vital Signs Vital signs: Vital Signs Temp 97.9 F 01/15/24 07:40 Pulse 99 01/15/24 07:40 Resp 18 01/15/24 07:40 BP 108/67 01/15/24 07:40 Pulse Ox 96 01/15/24 07:40 FiO2 Intake & Output 01/14/24 01/15/24 01/15/24 18:59 06:59 18:59 Other: Voiding Method Toilet # Voids 4 - Exam GENERAL DESCRIPTION: Middle-age male lying in bed in no distress RESPIRATORY SYSTEM: Unlabored breathing , decreased breath sounds at bases HEART: S1 S2 regular rate and rhythm , ABDOMEN: Soft , no tenderness EXTREMITIES: Bilateral lower extremity swelling redness slightly decreased - Labs CBC & Chem 7: 01/14/24 05:02 01/14/24 05:02 Labs: Microbiology - Last 24 Hours (Table) 01/11/24 01:30 Blood Culture - Preliminary Blood Assessment and Plan (1) Bilateral lower leg cellulitis Status: Acute Code(s): L03.116 - CELLULITIS OF LEFT LOWER LIMB; L03.115 - CELLULITIS OF RIGHT LOWER LIMB SNOMED Code(s): 285931832 (2) Failure of outpatient treatment Status: Acute Code(s): Z78.9 - OTHER SPECIFIED HEALTH STATUS SNOMED Code(s): 923243775 Plan: 1patient with diffuse swelling to bilateral lower extremity with associated redness in this patient's likely with venous stasis but no evidence of any DVT continue to risk of recurrent cellulitis failing outpatient oral antibiotic therapy likely streptococcal disease 2patient did have improvement in lower extremity cellulitis patient has been educated about his condition with swelling more likely responsible for recurrent episode of cellulitis has been advised to follow-up with the vascular surgeon in the outpatient setting and will finish therapy with oral Keflex discussed with admitting physician Dictation was produced using [employer] dictation software. please excuse any grammatical, word or spelling errors. Time with Patient: Less than 30
--- NOTE | 2024-01-16 10:59 | P.DS ---
Providers Date of admission: 01/11/24 02:05 Attending physician: Jaden Waldrop Consults: 01/11/24 01:29 Consult Physician Urgent Consulting Provider: Roberta Grey Consult Reason/Comments: Possible bilateral LE cellulitis Do you want consulting provider notified?: Yes Primary care physician: Stated None Hospital Course: Diagnoses: 1. Cellulitis bilateral lower extremities; failed outpatient treatment 2. Obesity; counseling done on need for weight reduction Hospital course: 53-year-old male who presents to the emergency department for redness and swelling to his bilateral lower extremities. States that he has been dealing with this intermittently for the last 3 months. Patient was found to have bilateral lower extremity cellulitis. Patient was evaluated by infectious disease team He was treated with cefazolin. Patient short interval improvement in his symptoms and leg swelling and redness improved but not completely resolved Patient with no fever or leukocytosis. Pain controlled. Patient eager to go home. Discussed the case with ID team who cleared him for discharge on Keflex x 10 days and a prescription is provided for the patient Ultrasound of the leg was negative on admission for DVT Blood culture with no growth. Problems and management plan were discussed with the patient and he verbalized understanding and acceptance Patient was found stable and can be discharged home in guarded prognosis however he needs follow-up as an outpatient. Patient was instructed to follow up with PCP within one week and patient agrees Patient instructed to follow-up with appointment made for him with Dr. Buenrostro from ID team on 01/20 and he agrees Physical exam Gen: patient is a AAOx3, no distress CVS: S1-S2, RRR, no murmur Lungs: B/L CTA, no wheezing Abdomen: soft, no distention, no tenderness, positive bowel sounds Extremity: no leg edema or induration. Bilateral leg cellulitis improving. Gait: Normal. No ataxia Time spent more than 35 minutes Plan - Discharge Summary Discharge Rx Participant: No New Discharge Prescriptions: New Cephalexin [Keflex] 500 mg PO Q8HR 10 Days #30 cap Acetaminophen Tab [Tylenol] 650 mg PO Q6HR PRN tab PRN Reason: Mild Pain Or Fever > 100.5 Discontinued Doxycycline Hyclate 100 mg PO BID Discharge Medication List Acetaminophen Tab [Tylenol] 650 mg PO Q6HR PRN tab 01/15/24 [Rx] Cephalexin [Keflex] 500 mg PO Q8HR 10 Days #30 cap 01/15/24 [Rx] Follow up Appointment(s)/Referral(s): Shaun Blank [STAFF PHYSICIAN] - 03/11/24 1:30 pm (blood disease doctor for your high hemoglobin level in your blood tests ) None,Stated [Primary Care Provider] - 1-2 days [facility] [facility] - 1 Week (office not answering please call to schedule appointmen ) Roberta Grey MD [STAFF PHYSICIAN] - 01/21/24 3:00 pm Patient Instructions/Handouts: Cellulitis (GEN) Activity/Diet/Wound Care/Special Instructions: Heart healthy diet Activity is restricted till you see your doctor We recommend to contact your health insurance provider to find a nearby primary care doctor, please call to make an appointment in 1 week Discharge Disposition: HOME SELF-CARE
== END 2024-01-15 15:30 | disposition home or self-care (01) ==
LOC: EC 20:23 → 6NMEDSUR 01-11 02:05 → 4SSUR 01-11 16:28
PROVIDERS: ADMIT Hospitalist; ATTEND Hospitalist
DX: L03.115 Cellulitis of right lower limb (principal); L03.116 Cellulitis of left lower limb; R74.01 Elevation of levels of liver transaminase levels; E66.9 Obesity, unspecified; F17.200 Nicotine dependence, unspecified, uncomplicated; Z68.38 Body mass index [BMI] 38.0-38.9, adult
CPT/HCPCS: 36415; 80048; 80053; 83605; 83880; 85025; 85652; 86140; 87040; 93970; 96365; 96366; 96367; 99285